=== PATIENT | female | born 1995 | race Caucasian/White ===

== ENCOUNTER 2022-07-28 09:36 | Inpatient (IN) | payer BC, SELFPAY ==
[2022-07-28] MEDS ORDERED: Ibuprofen 800 MG TAB PO PRN (09:40)
[2022-07-28] MEDS ORDERED: Calcium Gluc 4.6 MEQ/10 ML (100 MG/ML) SLOW IVP PRN (09:40)
[2022-07-28] MEDS ORDERED: Ondansetron PF 4 MG/2 ML Vial IVP PRN ×2 (09:40→19:15)
[2022-07-28] MEDS ORDERED: Labetalol HCl 100 MG/20 ML VIAL SLOW IVP PRN ×2 (09:40)
[2022-07-28] MEDS ORDERED: Butorphanol Tartrate 1 MG/ML VIAL SLOW IVP PRN (09:40)
[2022-07-28] MEDS ORDERED: Docusate 100 MG CAP PO PRN (09:40)
[2022-07-28] MEDS ORDERED: Promethazine HCl 25 MG/ML VIAL IM PRN ×2 (09:40→19:15)
[2022-07-28] MEDS ORDERED: Diphenoxylate HCl/Atropine Tablet PO PRN ×2 (09:40)
[2022-07-28] MEDS ORDERED: Lorazepam 2 MG/ML VIAL SLOW IVP PRN (09:40)
[2022-07-28] MEDS ORDERED: Acetaminophen 500 MG TAB PO PRN (09:40)
[2022-07-28] MEDS ORDERED: HYDROcodone/Acetaminophen 5/325 mg Tablet PO PRN ×2 (09:40)
[2022-07-28] MEDS ORDERED: hydrALAZINE 20 MG/ML VIAL SLOW IVP PRN ×3 (09:40)
[2022-07-28] MEDS ORDERED: Lidocaine 1% (PF) 30 ML VIAL SC PRN (09:40)
[2022-07-28] MEDS ORDERED: Misoprostol 200 MCG TAB PR PRN (09:40)
[2022-07-28] MEDS ORDERED: Lactated Ringer's 1,000 ML IV SCH (09:45)
[2022-07-28] MEDS ORDERED: NS w/ Oxytocin 30 units 500 ML IV SCH ×2 (09:45→11:45)
[2022-07-28 11:31] LABS: #Eosinphils 0.1 10x3/uL (0.0-0.5); #Monocytes 0.7 10x3/uL (0.0-1.1); #Neutrophils 6.6 10x3/uL (1.5-8.4); %Basophils 0.4 % (0.0-2.0); %Eosinophils 0.8 % (0.0-6.0); %Lymphocytes 15.1 % (18.0-47.0); %Monocytes 7.3 % (0.0-10.0); %Neutrophils 74.1 % (40.0-75.0); Hemoglobin 10.7 g/dL (12.0-15.5); Mean Corpuscular HGB CONC 32.8 g/dL (32.0-36.0); Mean Corpuscular Hemoglobin 28.8 pg (27.0-33.0); Mean Corpuscular Volume 87.9 fl (81.6-98.3); Mean Platelet Volume 10.2 fl (7.4-10.4); Platelet Count 230 10x3/uL (150-450); RBC Distribution Width 16.5 % (11.5-14.5); Red Blood Cell (RBC) Count 3.71 10x6/uL (3.90-5.03)
[2022-07-28 11:38] LABS: ALT (SGPT) 8 U/L (8-55); AST (SGOT) 14 U/L (5-34); AST (SGOT) 15 U/L (5-34); Albumin 3.5 g/dL (3.5-5.0); Alkaline Phosphatase 147 U/L (40-110); Anion Gap 15 mmol/L (10-20); BUN (Urea Nitrogen) 6 mg/dL (7.0-18.7); Bilirubin, Direct 0.1 mg/dL (0.1-0.3); Bilirubin, Total 0.3 mg/dL (0.2-1.2); Calc. Creatinine Clearance 0 mL/min (70-130); Calcium 8.5 mg/dL (7.8-10.44); Carbon Dioxide 18 mmol/L (22-29); Chloride 108 mmol/L (98-107); Estimated GFR 123; Globulin 3.3 g/dL (2.4-3.5); Glucose 77 mg/dL (70-105); Potassium 3.7 mmol/L (3.5-5.1); Protein, Total 6.7 g/dL (6.0-8.3); Protein, Total 6.8 g/dL (6.0-8.3); Sodium 137 mmol/L (136-145); Uric Acid 5.8 mg/dL (2.6-6.0)
[2022-07-28 11:55] LABS: HBSAg Index 0.24 S/CO (0-0.99); HIV (1/2) Antibody/Antigen Non-Reactive (NonReactive); HIV 1/2 INDEX 0.09 S/CO (<1.00); Hep B Surf Ag Non-Reactive S/CO (NonReactive)
[2022-07-28 11:56] LABS: Syphilis Antibody Nonreactive (Nonreactive); Syphilis Antibody Index 0.02 S/CO (<1.00 Non-Reactive)
[2022-07-28 13:07] VITALS: BMI 34.4
[2022-07-28 16:03] LABS: SARS-CoV-2 NAA Rapid Test Not Detected (NotDetected)
[2022-07-28] MEDS ORDERED: Fentanyl 2 mcg/Bup 0.1% Cadd 100 ML ONE (16:39)
[2022-07-28] MEDS: Labetalol HCl 200 MG TAB PO SCH (18:16)
[2022-07-28 18:47] LABS: Creatinine, Urine 80.76 mg/dL (47-110)
[2022-07-28] MEDS ORDERED: Moisturizing Cream (Eucerin) 113 GM JAR TOP PRN (19:15)
[2022-07-28] MEDS ORDERED: Acetaminophen 325 MG TAB PO PRN (19:15)
[2022-07-28] MEDS ORDERED: Lactated Ringer's 500 ML IV PRN (19:15)
[2022-07-28] MEDS ORDERED: Fentanyl 2 mcg/Bupivacaine 0.1% Cassette 100 ML EPIDURAL SCH (19:15)
[2022-07-28] MEDS ORDERED: Communication Order-Pharmacy FS SCH (19:15)
[2022-07-28] MEDS ORDERED: Naloxone HCl 0.4 mg/ml Vial IVP PRN ×2 (19:15)
[2022-07-28] MEDS ORDERED: diphenhydrAMINE 50 MG/ML VIAL IVP PRN (19:15)
[2022-07-28] MEDS ORDERED: ePHEDrine Sulfate 50 MG/10 ML VIAL SLOW IVP PRN (19:15)
[2022-07-29] MEDS ORDERED: Fentanyl 2 mcg/Bup 0.1% Cadd 100 ML ONE (00:51)
[2022-07-29] MEDS ORDERED: Acetaminophen 325 MG TAB PO PRN (06:03)
[2022-07-29] MEDS ORDERED: CEFAZOLIN 2 GM VIAL ONE (06:30)
[2022-07-29] MEDS ORDERED: Bisacodyl 10 MG SUPP PR PRN (07:15)
[2022-07-29] MEDS ORDERED: Zolpidem Tartrate 5 MG TAB PO PRN (07:15)
[2022-07-29] MEDS ORDERED: Benzocaine-Menthol 82.5 ML CAN TOP PRN (07:15)
[2022-07-29] MEDS ORDERED: hydrALAZINE 20 MG/ML VIAL SLOW IVP PRN (07:15)
[2022-07-29] MEDS ORDERED: diphenhydrAMINE 25 MG CAP PO PRN (07:15)
[2022-07-29] MEDS ORDERED: NS w/ Oxytocin 30 units 500 ML IV SCH (07:15)
[2022-07-29] MEDS ORDERED: Milk Of Magnesia 30 ML UDCUP PO PRN (07:15)
[2022-07-29] MEDS ORDERED: Preparation H Ointment 28 GM TUBE PR PRN (07:15)
[2022-07-29] MEDS ORDERED: Lanolin Ointment 7 GM TUBE TOP PRN (07:15)
[2022-07-29] MEDS ORDERED: Ondansetron PF 4 MG/2 ML Vial IVP PRN (07:15)
[2022-07-29] MEDS ORDERED: Misoprostol 200 MCG TAB VAG PRN (07:15)
[2022-07-29] MEDS ORDERED: HYDROcodone/Acetaminophen 5/325 mg Tablet PO PRN ×2 (07:15)
[2022-07-29] MEDS ORDERED: Witch Hazel-Glycerin 1 EACH JAR TOP PRN (07:17)
[2022-07-29] MEDS: Ferrous Sulfate 325 MG TAB PO SCH ×2 (09:23→16:46)
[2022-07-29] MEDS: Prenatal Vitamin 1 TAB PO SCH (09:24)
[2022-07-29] MEDS: Docusate 100 MG CAP PO SCH ×2 (09:24→21:37)
[2022-07-29] MEDS ORDERED: CEFAZOLIN 2 GM in Sodium Chloride 0.9% 100 ML IVPB SCH (14:00)
[2022-07-29] MEDS: CEFAZOLIN 2 GM in Sodium Chloride 0.9% 100 ML IVPB SCH ×2 (14:01→21:37)
[2022-07-29] MEDS: Ibuprofen 800 MG TAB PO SCH ×2 (14:02→21:36)
[2022-07-29] MEDS: Labetalol HCl 200 MG TAB PO SCH (15:07)
[2022-07-30 04:43] LABS: Hemoglobin 9.4 g/dL (12.0-15.5); Mean Corpuscular HGB CONC 32.4 g/dL (32.0-36.0); Mean Corpuscular Hemoglobin 28.5 pg (27.0-33.0); Mean Corpuscular Volume 87.9 fl (81.6-98.3); Mean Platelet Volume 10.2 fl (7.4-10.4); Platelet Count 238 10x3/uL (150-450); RBC Distribution Width 17.2 % (11.5-14.5); White Blood Cell (WBC) Count 14.7 10x3/uL (3.5-10.5)
[2022-07-30] MEDS: Ibuprofen 800 MG TAB PO SCH ×2 (05:27→14:17)
[2022-07-30] MEDS: Prenatal Vitamin 1 TAB PO SCH (08:26)
[2022-07-30] MEDS: Docusate 100 MG CAP PO SCH (08:26)
[2022-07-30] MEDS: Ferrous Sulfate 325 MG TAB PO SCH (08:26)
[2022-07-30 09:29] VITALS: BP 116/72; TEMP 97.8
[2022-08-01] MEDS ORDERED: Boostrix 0.5 ML (Tdap) VIAL (>/=7 yrs of age) IM ONE (07:15)
== END 2022-07-30 15:15 | disposition home or self-care (01) | DRG 807 ==
LOC: CSHLD/OP 09:36 → CSHLD 09:37 → CSHPP 07-29 09:05
PROVIDERS: ADMIT Obstetrics & Gynecology; ATTEND Obstetrics & Gynecology
PROC: 10907ZC Drainage of Amniotic Fluid, Therapeutic from Products of Conception, Via Natural or Artificial Opening (ICD-10-PCS; 2022-07-28)
PROC: 3E033VJ Introduction of Other Hormone into Peripheral Vein, Percutaneous Approach (ICD-10-PCS; 2022-07-28)
PROC: 10E0XZZ Delivery of Products of Conception, External Approach (ICD-10-PCS; principal; 2022-07-29)
PROC: 0KQM0ZZ Repair Perineum Muscle, Open Approach (ICD-10-PCS; 2022-07-29)
DX: O13.4 Gestational [pregnancy-induced] hypertension without significant proteinuria, complicating childbirth (principal); Z37.0 Single live birth; Z20.822 Contact with and (suspected) exposure to COVID-19; Z3A.37 37 weeks gestation of pregnancy; D64.9 Anemia, unspecified; O99.02 Anemia complicating childbirth; Z79.899 Other long term (current) drug therapy; O70.1 Second degree perineal laceration during delivery
CPT/HCPCS: 36415; 51702; 80053; 82570; 84156; 84550; 85025; 85027; 86780; 86850; 86900; 86901; 87340; 87389; J0690; J2590; J3490; U0002

== ENCOUNTER 2023-09-26 08:44 | Day surgery (SDC) | payer BC ==
[2023-09-26] MEDS ORDERED: Tranexamic Acid 1,000 MG/10 ML VIAL ONE (08:52)
[2023-09-26] MEDS ORDERED: Methylergonovine 0.2 MG/ML VIAL ONE ×2 (08:52→10:07)
[2023-09-26] MEDS ORDERED: Misoprostol 200 MCG TAB ONE (08:52)
[2023-09-26] MEDS ORDERED: Lidocaine 1% PF 5 ML VIAL ONE (08:56)
[2023-09-26] MEDS ORDERED: PROPOFOL 40 ML ONE (08:56)
[2023-09-26] MEDS ORDERED: Ondansetron PF 4 MG/2 ML Vial ONE (08:56)
[2023-09-26] MEDS ORDERED: Rocuronium Bromide 10 MG/ML (10ML VIAL) ONE (08:56)
[2023-09-26] MEDS ORDERED: Dexamethasone 4 mg/ml Vial ONE (08:56)
[2023-09-26] MEDS ORDERED: Succinylcholine 200 MG/10 ml SYRINGE FS ONE (08:56)
[2023-09-26] MEDS ORDERED: ePHEDrine Sulfate 50 MG/10 ML VIAL ONE (09:01)
[2023-09-26] MEDS ORDERED: fentaNYL 50 mcg/mL 1 mL Vial ONE ×2 (09:18→09:31)
[2023-09-26] MEDS ORDERED: Midazolam HCl 2 mg/2 ml Vial ONE (09:18)
[2023-09-26] MEDS ORDERED: PROPOFOL 20 ML ONE (09:27)
[2023-09-26] MEDS ORDERED: Furosemide 20 MG/2 ML VIAL ONE (09:30)
[2023-09-26 10:41] LABS: Hematocrit 34.2 % (34.9-44.5); Hemoglobin 11.7 g/dL (12.0-15.5)
[2023-09-26] MEDS ORDERED: Methylergonovine 0.2 MG TAB ONE (11:37)
== END 2023-09-26 13:50 | disposition home or self-care (01) ==
LOC: CSHERS 08:44 → CSHSDC/OP 09:22
PROVIDERS: ATTEND Obstetrics & Gynecology
PROC: 10D07Z8 Extraction of Products of Conception, Other, Via Natural or Artificial Opening (ICD-10-PCS; principal; 2023-09-26)
DX: O03.4 Incomplete spontaneous abortion without complication (principal); O46.91 Antepartum hemorrhage, unspecified, first trimester; O73.1 Retained portions of placenta and membranes, without hemorrhage; J45.909 Unspecified asthma, uncomplicated; Z88.0 Allergy status to penicillin; Z79.899 Other long term (current) drug therapy
CPT/HCPCS: 36415; 36430; 76856; 80053; 84702; 85025; 85610; 85730; 86850; 86900; 86901; 88305; 99285; J1100; J1940; J2210; J2250; J2272; J2405; J2704; J3010; P9016